=== PATIENT | female | born 1985 | race Caucasian/White ===

== ENCOUNTER 2018-03-19 15:33 | Outpatient (CLI) | payer MEDICAID ==
[2018-03-19 19:33] LABS: ADD UMIC NO; UR ASCORBIC ACID NEGATIVE (NEGATIVE); UR BILIRUBIN (Dip) NEGATIVE (NEGATIVE); UR BLOOD (Dip) NEGATIVE (NEGATIVE); UR CLARITY CLEAR (CLEAR); UR COLOR STRAW (YELLOW); UR GLUCOSE (Dip) NEGATIVE (NEGATIVE); UR KETONES (Dip) NEGATIVE (NEGATIVE); UR LEUKOCYTE ESTERASE (Dip) NEGATIVE Leu/ul (NEGATIVE); UR NITRITE (Dip) NEGATIVE (NEGATIVE); UR TOTAL PROTEIN (Dip) NEGATIVE (NEGATIVE); UR UROBILINOGEN (Dip) NEGATIVE (NEGATIVE)
== END 2018-03-19 21:20 | disposition home or self-care (01) ==
LOC: OBT 15:33 → L-D 15:35 → OBT 21:20
DX: O26.893 Other specified pregnancy related conditions, third trimester (principal); Z3A.38 38 weeks gestation of pregnancy
CPT/HCPCS: 76818; 81003; 87086

== ENCOUNTER 2018-03-25 07:10 | Inpatient (IN) | payer MEDICAID ==
[2018-03-25] MEDS ORDERED: OXYTOCIN 30 UNITS/LR 500 ML IV ×2 (07:30)
[2018-03-25] MEDS ORDERED: LIDOCAINE 1% (MPF) 30 ML INJ INJ (07:30)
[2018-03-25] MEDS ORDERED: MISOPROSTOL 200 MCG TAB PR (07:30)
[2018-03-25] MEDS ORDERED: IBUPROFEN 600 MG TAB PO (07:30)
[2018-03-25] MEDS ORDERED: BUTORPHANOL 2 MG INJ IV (07:30)
[2018-03-25] MEDS ORDERED: METHYLERGONOVINE 0.2 MG INJ IM (07:30)
[2018-03-25] MEDS ORDERED: CARBOPROST 250 MCG INJ IM (07:30)
[2018-03-25] MEDS: LACTATED RINGER'S 1,000 ML IV ×4 (08:21→22:17)
[2018-03-25 08:24] LABS: ADD MAN DIFF? NO
[2018-03-25 08:30] LABS: BASOPHILS % 0.3 % (0.0-2.0); EOSINOPHILS % 0.4 % (0.0-7.0); HEMATOCRIT 40.9 % (37.0-47.0); HEMOGLOBIN 13.9 g/dl (12.0-16.0); LYMPHOCYTES # 4.5 10^3/ul (0.8-2.9); LYMPHOCYTES % 44.3 % (15.0-51.0); MEAN CORPUSCULAR HEMOGLOBIN 32.3 pg (29.0-33.0); MEAN CORPUSCULAR VOLUME 95.1 fl (82.0-101.0); MEAN PLATELET VOLUME 11.8 fl (7.4-10.4); MONOCYTE # 0.8 10^3/ul (0.3-0.9); MONOCYTES % 7.7 % (0.0-11.0); NEUTROPHIL # 4.6 10^3/ul (1.6-7.5); NUCLEATED RED BLOOD CELLS # 0.1 10^3/ul (0.0-0.0); PLATELET COUNT 177 10^3/UL (140-415); RED CELL DISTRIBUTION WIDTH 15.6 % (11.5-14.5)
[2018-03-25 08:30] LABS: WHITE BLOOD COUNT 10.2 10^3/ul (4.8-10.8)
[2018-03-25 08:56] LABS: INR 0.96; PROTIME 12.9 Sec (11.9-14.9)
[2018-03-25 08:57] LABS: PARTIAL THROMBOPLASTIN TIME 32.6 Sec (23.0-35.0)
[2018-03-25 09:20] LABS: HEPATITIS B SURFACE ANTIGEN NEGATIVE (NEGATIVE)
[2018-03-25] MEDS: LIDOCAINE 0.5% (SDV) 50 ML INJ INFIL (09:30)
[2018-03-25] MEDS: MINERAL OIL LIGHT 10 ML VIAL TOP (09:30)
[2018-03-25] MEDS: OXYTOCIN 30 UNITS/LR 500 ML IV (12:05)
[2018-03-25] MEDS ORDERED: HYDROmorphONE 0.5 MG/0.5 ML SYG IV ×2 (14:00)
[2018-03-25] MEDS ORDERED: KETOROLAC 30 MG INJ IV (14:00)
[2018-03-25] MEDS ORDERED: ZOLPIDEM 5 MG TAB PO (14:00)
[2018-03-25] MEDS ORDERED: NALOXONE (0.4 MG/ML) INJ IV (14:00)
[2018-03-25] MEDS ORDERED: DIPHENHYDRAMINE 50 MG INJ IV (14:00)
[2018-03-25] MEDS: FENTAnyl 2MCG/ML-ROPIV 0.2% 100 ML BAG EPI ×2 (14:15→22:22)
[2018-03-25] MEDS: ONDANSETRON 4 MG INJ IV (15:56)
[2018-03-25 18:15] LABS: RAPID PLASMA REAGIN NONREACTIVE (NR)
[2018-03-25 21:53] LABS: ADD UMIC NO; UR ASCORBIC ACID NEGATIVE (NEGATIVE); UR BILIRUBIN (Dip) NEGATIVE (NEGATIVE); UR BLOOD (Dip) NEGATIVE (NEGATIVE); UR CLARITY CLEAR (CLEAR); UR COLOR STRAW (YELLOW); UR GLUCOSE (Dip) NEGATIVE (NEGATIVE); UR KETONES (Dip) NEGATIVE (NEGATIVE); UR LEUKOCYTE ESTERASE (Dip) NEGATIVE Leu/ul (NEGATIVE); UR NITRITE (Dip) NEGATIVE (NEGATIVE); UR SPECIFIC GRAVITY (Dip) 1.003 (1.003-1.030); UR TOTAL PROTEIN (Dip) NEGATIVE (NEGATIVE); UR UROBILINOGEN (Dip) NEGATIVE (NEGATIVE)
[2018-03-26] MEDS ORDERED: LIDOCAINE 1% (MPF) 30 ML INJ (05:01)
[2018-03-26] MEDS: OXYTOCIN 30 UNITS/LR 500 ML IV ×2 (05:27→05:33)
[2018-03-26] MEDS: LACTATED RINGER'S 1,000 ML IV* ×2 (05:27→13:27)
[2018-03-26] MEDS ORDERED: METHYLERGONOVINE 0.2 MG INJ IM (05:30)
[2018-03-26] MEDS ORDERED: MISOPROSTOL 200 MCG TAB PR (05:30)
[2018-03-26] MEDS ORDERED: CARBOPROST 250 MCG INJ IM (05:30)
[2018-03-26] MEDS ORDERED: OXYTOCIN 30 UNITS/LR 500 ML IV (05:30)
[2018-03-26] MEDS: HYDROCODONE/APAP (5/325) TAB PO ×2 (05:41→21:39)
[2018-03-26] MEDS: IBUPROFEN 600 MG TAB PO ×4 (06:23→23:31)
[2018-03-26] MEDS: LANOLIN 7 GM TUBE TOP (11:41)
[2018-03-26] MEDS: BENZOCAINE 20% 56 ML SPRAY TOP (13:22)
[2018-03-26] MEDS: CEPHALEXIN 500 MG CAP PO ×2 (17:41→23:31)
[2018-03-27] MEDS: CEPHALEXIN 500 MG CAP PO ×3 (05:44→17:35)
[2018-03-27] MEDS: IBUPROFEN 600 MG TAB PO ×3 (05:44→17:35)
[2018-03-27 10:08] LABS: ADD MAN DIFF? NO
[2018-03-27 10:12] LABS: WHITE BLOOD COUNT 10.5 10^3/ul (4.8-10.8)
[2018-03-27 10:12] LABS: BASOPHIL # 0.1 10^3/ul (0.0-0.1); BASOPHILS % 0.5 % (0.0-2.0); EOSINOPHILS # 0.1 10^3/ul (0.0-0.5); EOSINOPHILS % 0.7 % (0.0-7.0); HEMATOCRIT 35.5 % (37.0-47.0); HEMOGLOBIN 11.8 g/dl (12.0-16.0); LYMPHOCYTES # 4.4 10^3/ul (0.8-2.9); MEAN CORPUSCULAR HEMOGLOBIN 32.1 pg (29.0-33.0); MEAN CORPUSCULAR HGB CONC 33.2 g/dl (32.0-37.0); MEAN CORPUSCULAR VOLUME 96.5 fl (82.0-101.0); MEAN PLATELET VOLUME 11.9 fl (7.4-10.4); MONOCYTE # 0.6 10^3/ul (0.3-0.9); MONOCYTES % 5.4 % (0.0-11.0); NEUTROPHIL # 5.3 10^3/ul (1.6-7.5); NEUTROPHILS % 50.2 % (39.0-77.0); NUCLEATED RED BLOOD CELLS # 0.1 10^3/ul (0.0-0.0); NUCLEATED RED BLOOD CELLS% 1.2 /100WBC (0.0-0.0); PLATELET COUNT 148 10^3/UL (140-415); RED BLOOD COUNT 3.68 10^6/ul (4.20-5.40); RED CELL DISTRIBUTION WIDTH 16.3 % (11.5-14.5)
[2018-03-28] MEDS: IBUPROFEN 600 MG TAB PO ×3 (00:13→12:20)
[2018-03-28] MEDS: CEPHALEXIN 500 MG CAP PO ×3 (00:13→12:20)
[2018-03-28] MEDS: DIPHTH/TET/ACEL PERTUSS (ADULT) 0.5 ML VIAL IM* (09:08)
== END 2018-03-28 12:25 | disposition home or self-care (01) | DRG 807 ==
LOC: L-D 07:10 → PP1 03-26 06:32
PROVIDERS: Obstetrics & Gynecology
PROC: 10E0XZZ Delivery of Products of Conception, External Approach (ICD-10-PCS; principal; 2018-03-26)
DX: O69.81X0 Labor and delivery complicated by cord around neck, without compression, not applicable or unspecified (principal); Z37.0 Single live birth; O70.1 Second degree perineal laceration during delivery; Z3A.39 39 weeks gestation of pregnancy
CPT/HCPCS: 62319; 76816; 81003; 85025; 85610; 85730; 86592; 86850; 86900; 86901; 87086; 87340; 90715